=== PATIENT | male | born 1940 | race Caucasian/White ===

== ENCOUNTER 2018-11-08 20:23 | Inpatient (IN) | payer MEDICARE ==
[~2018-11-08] VITALS: Ht 177.8 cm; Wt 108.8 kg
[2018-11-08] MEDS: IPRATROPIUM 0.5MG/ALBUTEROL 2.5MG INH SOL UD 3ML (DUONEB)(J7620) NEB SCH (20:00)
[2018-11-08] MEDS: HumaLOG INSULIN (NovoLOG) PER UNIT SC SCH (21:00)
[2018-11-08 21:09] LABS: HEMATOCRIT 37.2 % (42.0-52.0); HEMOGLOBIN 12.5 g/dl (13.5-17.5); MEAN CORPUSCULAR HEMOGLOBIN 30.2 pg (27.0-33.0); MEAN CORPUSCULAR HGB CONC 33.6 g/dl (32.0-36.5); MEAN CORPUSCULAR VOLUME 89.9 fl (80.0-96.0); RED BLOOD COUNT 4.14 10^6/uL (4.30-6.10); WHITE BLOOD COUNT 20.3 10^3/uL (4.0-10.0)
[2018-11-08 21:14] LABS: CREATININE FOR GFR 1.33 MG/DL (0.70-1.30); GLOMERULAR FILTRATION RATE 55.2 (>42); POTASSIUM SERUM 3.6 MEQ/L (3.5-5.1)
[2018-11-08] MEDS ORDERED: IPRATROPIUM 0.5MG/ALBUTEROL 2.5MG INH SOL UD 3ML (DUONEB)(J7620) NEB ONE (21:15)
[2018-11-08] MEDS ORDERED: FUROSEMIDE 100 MG/10 ML VIAL (J1940) IV ONE (21:15)
[2018-11-08 21:29] LABS: ATYPICAL LYMPH 9 % (0-5); LYMPHOCYTES 4 % (16-52); MONOCYTES 8 % (0-8); NEUTROPHILS 79 % (35-75)
[2018-11-08 21:30] LABS: PLATELET ESTIMATE INCREASED (NORMAL)
[2018-11-08] MEDS ORDERED: dexameTHASONE 20 MG/5 ML VIAL (J1100) IV ONE (21:30)
[2018-11-08 21:31] LABS: ANISOCYTOSIS 1+; PLATELET CLUMPS MODERATE AMT; TOXIC GRANULATION 1+; TOXIC VACUOLATION 1+
[2018-11-08] MEDS ORDERED: AZITHROMYCIN INJ 500 MG, VIAL MATE ADAPTER 1 EACH in D5W 250 ML IV ONE (21:45)
[2018-11-08] MEDS ORDERED: cefTRIAXone SOD 2 GM in D5W MINI-BAG PLUS 50 ML IV ONE (21:45)
[2018-11-08] MEDS ORDERED: BISACODYL 10 MG SUPP PR PRN (22:00)
[2018-11-08] MEDS ORDERED: NS 1,000 ML IV SCH (22:00)
[2018-11-08] MEDS ORDERED: IPRATROPIUM 0.5MG/ALBUTEROL 2.5MG INH SOL UD 3ML (DUONEB)(J7620) NEB PRN (22:00)
[2018-11-08] MEDS ORDERED: ACETAMINOPHEN TAB 650MG DOSE (2X325MG) PO PRN (22:00)
[2018-11-08] MEDS ORDERED: ONDANSETRON 4MG/2ML VIAL (J2405) IV PRN (22:00)
[2018-11-08 22:07] LABS: ABG BASE EXCESS 1.4 (-2.0-2.0); ABG HCO3 24.2 MEQ/L (22.0-26.0); ABG O2 SATURATION 95.9 % (95.0-99.0); ABG PARTIAL PRESSURE CO2 32.9 mmHg (35.0-45.0); ABG PARTIAL PRESSURE O2 80.1 mmHg (75.0-100.0); ABG STANDARD HCO3 25.7 MEQ/L (22.0-26.0); ABG TOTAL CO2 25.2 MEQ/L (23.0-31.0); ABG pH (ARTERIAL) 7.485 UNITS (7.350-7.450)
[2018-11-08 22:11] LABS: INFLUENZA A AMPLIFICATION NEGATIVE (NEGATIVE); INFLUENZA B AMPLIFICATION NEGATIVE (NEGATIVE)
[2018-11-08 22:33] LABS: MB/CK RELATIVE INDEX 1.66 (< OR =4); TROPONIN I 0.04 NG/ML (< 0.10)
[2018-11-08] MEDS ORDERED: OMEP20CA3 PO (23:05)
[2018-11-08] MEDS ORDERED: ZYRT10CA5 PO (23:05)
[2018-11-08] MEDS ORDERED: FLUTISP (23:05)
[2018-11-08] MEDS ORDERED: BUDE0.5S6 INH (23:05)
[2018-11-08] MEDS ORDERED: PRED10TA2 PO (23:05)
[2018-11-08] MEDS ORDERED: DIGO0.12 PO (23:05)
[2018-11-08] MEDS ORDERED: VENTAER INH (23:05)
[2018-11-08] MEDS ORDERED: GLIP2.5T6 PO (23:05)
[2018-11-08] MEDS ORDERED: BUME0.5T PO ×2 (23:05)
[2018-11-08] MEDS ORDERED: CART120C PO (23:05)
[2018-11-08] MEDS ORDERED: SING10TA32 PO (23:05)
[2018-11-08] MEDS ORDERED: MUCI600T31 PO (23:05)
[2018-11-08] MEDS ORDERED: AZEL0.1S (23:05)
[2018-11-08] MEDS ORDERED: ANOR1AER INH (23:05)
[2018-11-08] MEDS ORDERED: ALBU83IN INH (23:05)
[2018-11-08] MEDS ORDERED: METF500T13 PO (23:05)
[2018-11-08] MEDS ORDERED: ATOR1TAB21 PO (23:05)
[2018-11-08] MEDS ORDERED: GLUCOSE 4 GM CHEW TABLET PO PRN (23:15)
[2018-11-08] MEDS ORDERED: DEXTROSE 50% 50 ML SYRINGE IV PRN (23:15)
[2018-11-08] MEDS ORDERED: GLUCAGON FOR INJ 1 MG VIAL (J1610) SC PRN (23:15)
--- NOTE | 2018-11-08 23:27 | HPEPDOC ---
[facility] Medical History & Physical Date of Admission Nov 08, 2018 Attending Physician: CHAPINCITO PAZ MD History and Physical CHIEF COMPLAINT: [Shortness of breath ] HISTORY OF PRESENT ILLNESS: [77-year-old gentleman was in a few past medical history of BROOKLYNN requiring oxygen at night, asthma/COPD currently on prednisone, chronic lotion or any edema, GERD, hyperlipidemia, diabetes,hypertension who resides in [place] visiting son and Johny came in complaining acute on chronic shortness of breath. Patient states that he has shortness of breath for past 3 years but is ongoing on and off. He has chronic lower extremity swelling for past 3 months and is on hydrochlorothiazide and recently started on Bumex prior to coming to visit his son in [place]. Patient states that he has been unable to lie flat for a while which is unchanged. He is chronically on oxygen therapy at nighttime for his BROOKLYNN. He came to the hospital due to shortness of breath thats worse than his chronic shortness of breath. In the emergency room patient was found to have fever of 101. Chest x-ray was obtained with possible right lower lobe infiltrate. He also had leukocytosis. Patient is being admitted for further evaluation and treatment for pneumonia. Review system: 12 point review systems negative other than those described in HPI Past medical history: BROOKLYNN requiring oxygen at night, chronic lower surgery edema, GERD, hyperlipidemia, diabetes, hypertension, asthma, COPD Surgical history: Prostate surgery, bladder surgery, hernia repair Social history: Does not smoke quit 45 years ago, denies of alcohol or drug abuse Family medical history: Noncontributory ALLERGIES: Please see below. HOME MEDICATIONS: Please see below. PHYSICAL EXAMINATION: VITAL SIGNS: Please see below GENERAL APPEARANCE: Resting comfortably HEENT: Normocephalic, PERRLA, Mucous moist, CARDIOVASCULAR: S1,S2, pulse present, sinus tachycardic LUNGS: Equal decreased air entry b/l, no wheezes but fine crackle at the right base ABDOMEN: Soft, BS present, no tenderness, no guarding GENITOURINARY: No Perez EXTREMITIES: B/L +2 pitting edema to the knee bilaterally right greater than the left edema, capillary refill present SKIN: Warm, fever improved in the ER NEUROLOGICAL: Cranial nerves grossly intact PSYCHIATRIC: Normal mood and affect for current situation, son at the bedside EKG: Heart rate of 119, sinus tachycardia, motion artifact LABORATORY DATA: See below. IMAGING: [Chest x-ray: Possible right lower lobe infiltrate, no cardiomegaly and no obvious encephalization but please follow up with official reading by radiology in a.m.] MICROBIOLOGY: Please see below. Assessment and plan: 77-year-old gentleman was in a few past medical history of BROOKLYNN requiring oxygen at night, asthma/COPD currently on prednisone, chronic lotion or any edema, GERD, hyperlipidemia, diabetes,hypertension who resides in [place] visiting son and [place] came in complaining acute on chronic shortness of breath and admitted for pneumonia. Right lower lobe pneumonia suspected, cough, fever and leukocytosis RT, oxygen when necessary Azithromycin, and Rocephin Judicious IV fluid and Tylenol for fever Blood culture pending Please follow up with official reading by radiology Influenza A and B negative VQ scan if no improvement Continue home steroid, clinically monitor and utilize IV if requiring stress dosing Sinus tachycardia Treat above Resume home diltiazem and digoxin BROOKLYNN Oxygen at nighttime Chronic lower extremity swelling, possible CHF but surprisingly BNP within normal and chest x-ray without obvious signs for decompensation Telemetry, serial cardiac enzyme Echocardiogram for further evaluation I&O monitoring, daily weight Delmar stocking Hold diuretics for now to rehydrate and treat pneumonia Utilize IV Lasix if does not respond to treatment above Possible Acute renal failure, no old creatinine for comparison IV fluid Hold renal toxic medication including bumetanide and hydrochlorothiazide Judicious monitoring, renal ultrasound Nephrology consult as needed Diabetes Fingersticks, sliding scale, hold by mouth medications, utilize long-acting insulin as needed Hyperlipidemia, resume statin Hypertension, resume diltiazem Arrhythmia, resume diltiazem and digoxin Asthma, COPD, resume RT home regimen including prednisone daily GERD, resume omeprazole DVT prophylaxis with heparin subcutaneous Requests full code Vital Signs Vital Signs Date Time Temp Pulse Resp B/P (MAP) Pulse Ox O2 Delivery O2 Flow Rate FiO2 11/08/18 23:02 100.0 11/08/18 22:30 120 24 189/79 (115) 93 Nasal Cannula 2.0 Laboratory Data Labs 24H Laboratory Tests 2 11/08/18 20:47: White Blood Count 20.3H, Red Blood Count 4.14L, Hemoglobin 12.5L, Hematocrit 37.2L, Mean Corpuscular Volume 89.9, Mean Corpuscular Hemoglobin 30.2, Mean Pippa uscular Hemoglobin Concent 33.6, Red Cell Distribution Width 14.6H, Platelet Count , Monocytes # (Auto) , Nucleated Red Blood Cells % (auto) 0.0, Neutrophils 79H, Lymphocytes (Manual) 4L, Monocytes (Manual) 8, Atypical Lymphocytes 9H, Toxic Granulation 1+, Toxic Vacuolation 1+, Platelet Estimate INCREASED, Clumped Platelets MODERATE AMT, Anisocytosis 1+, Anion Gap 11, Glomerular Filtration Rate 55.2, Lactic Acid Level 1.5, Blood Urea Nitrogen 27H, Creatinine 1.33H, Sodium Level 140, Potassium Level 3.6, Chloride Level 105, Carbon Dioxide Level 24, Calcium Level 9.0, Total Creatine Kinase 362H, Creatine Kinase MB 6.0H, Creatine Kinase MB Relative Index 1.66, Troponin I 0.04, JM-Tvd-N-Type Merline riuretic Peptide 361 11/08/18 21:29: Influenza Type A (RT-PCR) NEGATIVE, Influenza Type B (RT-PCR) NEGATIVE 11/08/18 22:02: Blood Gas Bicarbonate Standard 25.7, Arterial Blood pH 7.485H, Arterial Blood Partial Pressure CO2 32.9L, Arterial Blood Partial Pressure O2 80.1, Arterial Blood Total CO2 25.2, Arterial Blood HCO3 24.2, Arterial Blood Base Excess 1.4, Arterial Blood Oxygen Saturation 95.9 CBC/BMP Laboratory Tests 11/08/18 20:47 Red Blood Count 4.14 L, Mean Corpuscular Volume 89.9, Mean Corpuscular Hemoglobin 30.2, Mean Corpuscular Hemoglobin Concent 33.6, Red Cell Distribution Width 14.6 H, Monocytes # (Auto) , Calcium Level 9.0, Total Creatine Kinase 362 H Microbiology Microbiology 11/08/18 Blood Culture, Received Pending Home Medications Scheduled (Digoxin) 125 Mcg Tab, 125 MCG PO DAILY (Anoro Ellipta 62.5-25 Mcg/INH) 1 Aer Aer, 1 AER INH DAILY (Azelastine Hydrochloride) 0.1 % Spr, 2 SPRAYS NA DAILY Atorvastatin Calcium (Atorvastatin Calcium) 20 Mg Tab, 20 MG PO DAILY Budesonide (Budesonide) 0.5 Mg/2 Ml Neb, 0.5 MG INH BID Bumetanide (Bumetanide) 0.5 Mg Tab, 1 MG PO DAILY Bumetanide (Bumetanide) 0.5 Mg Tab, 0.5 MG PO QHS Cetirizine HCl (Zyrtec Allergy) 10 Mg Tab, 10 MG PO DAILY Diltiazem HCl (Cartia Xt) 120 Mg Cap, 120 MG PO BID Fluticasone Propionate (Fluticasone Propionate) 50 Mcg/Act Spr, 1 SPRAY NA BID Glipizide (Glipizide ER) 2.5 Mg Tab, 2.5 MG PO BID Guaifenesin (Mucinex) 600 Mg Tab, 600 MG PO BID Metformin Hydrochloride (Metformin HCl) 500 Mg Tab, 500 MG PO BID Montelukast Sodium (Singulair) 10 Mg Tab, 10 MG PO DAILY Omeprazole (Omeprazole) 20 Mg Cap, 20 MG PO DAILY Prednisone (Prednisone) 10 Mg Tab, 10 MG PO DAILY Scheduled PRN Albuterol Sulfate (Ventolin Hfa) 108 Mcg/Act Aer, 2 PUFFS INH Q4H PRN for SHORTNESS OF BREATH Albuterol Sulfate (Albuterol Sulfate) 2.5 Mg/3 Ml Nebu, 2.5 MG INH Q4H PRN for SHORTNESS OF BREATH Allergies Coded Allergies: No Known Allergies (Unverified , 11/08/18) GUY KLEIN MD Nov 08, 2018 23:27
[2018-11-09] VITALS (8 sets, daily range): BP systolic 130–165; BP diastolic 70–90
--- NOTE | 2018-11-09 00:44 | REPVR ---
EXAM: US Retroperitoneal Limited, Kidneys EXAM DATE/TIME: 11/08/2018 11:46 PM CLINICAL HISTORY: 77 years old, male; Condition or disease; Other: Arf TECHNIQUE: Real-time ultrasound of the retroperitoneum with image documentation. Examination was focused on the kidneys. COMPARISON: No relevant prior studies available. FINDINGS: Right kidney: 12.1 cm in length. No stones. No hydronephrosis. Left kidney: 12.2 cm in length. No stones. No hydronephrosis. Bladder: No definite urinary bladder wall thickening. IMPRESSION: No acute sonographic findings. Electronically signed by: Hieu Bertrand On 11/09/2018 00:43:22 AM
[2018-11-09] MEDS: IPRATROPIUM 0.5MG/ALBUTEROL 2.5MG INH SOL UD 3ML (DUONEB)(J7620) NEB SCH ×4 (02:00→20:37)
[2018-11-09 05:55] LABS: HEMATOCRIT 37.1 % (42.0-52.0); HEMOGLOBIN 12.4 g/dl (13.5-17.5); MEAN CORPUSCULAR HEMOGLOBIN 30.2 pg (27.0-33.0); MEAN CORPUSCULAR HGB CONC 33.4 g/dl (32.0-36.5); MEAN CORPUSCULAR VOLUME 90.3 fl (80.0-96.0); PLATELET COUNT, AUTOMATED 321 10^3/uL (150-450); RED BLOOD COUNT 4.11 10^6/uL (4.30-6.10); WHITE BLOOD COUNT 21.9 10^3/uL (4.0-10.0)
[2018-11-09] MEDS: HEPARIN SOD (PORCINE) 5000 UNITS/ML VIAL SC SCH ×3 (06:12→21:48)
[2018-11-09 06:20] LABS: CALCIUM LEVEL 8.8 MG/DL (8.8-10.2); CREATININE FOR GFR 1.24 MG/DL (0.70-1.30); GLOMERULAR FILTRATION RATE 59.9 (>42); MB/CK RELATIVE INDEX 1.8 (< OR =4); POTASSIUM SERUM 3.8 MEQ/L (3.5-5.1); TROPONIN I 0.03 NG/ML (< 0.10)
[2018-11-09] MEDS: BUDESONIDE 0.5 MG/2 ML INHALATION SUSPENSION INH SCH ×2 (07:26→20:37)
--- NOTE | 2018-11-09 07:43 | REP ---
Clinical: Shortness of breath. Technique: PA and lateral. Comparison: None. Findings: Mediastinum and cardiac silhouette are normal. Trace bibasilar atelectasis. No effusion. No pneumothorax. Skeletal structures intact. Impression: Trace basilar atelectasis. Electronically Signed by Juan Daniel Burnette MD 11/09/2018 07:34 A
[2018-11-09] MEDS: HumaLOG INSULIN (NovoLOG) PER UNIT SC SCH ×4 (07:57→20:51)
[2018-11-09] MEDS: ATORVASTATIN 20 MG TAB PO SCH (07:59)
[2018-11-09] MEDS: DIGOXIN 0.125 MG TAB PO SCH (07:59)
[2018-11-09] MEDS: OMEPRAZOLE 20 MG CAP PO SCH (08:00)
[2018-11-09] MEDS: FLUTICASONE PROP 0.05% NASAL SPRAY 16 GM (FLONASE) SCH ×2 (08:00→20:52)
[2018-11-09] MEDS: MONTELUKAST 10 MG TAB PO SCH (08:00)
[2018-11-09] MEDS: CETIRIZINE (ZyrTEC) 10 MG TAB PO SCH (08:00)
[2018-11-09] MEDS ORDERED: predniSONE 10 MG TAB PO SCH (09:00)
--- NOTE | 2018-11-09 09:53 | REP ---
Clinical: COPD. Technique: Axial noncontrast images from the thoracic inlet to the upper abdomen with coronal and sagittal re-formations. Comparison: None. Findings: The lung hoang are well-aerated and demonstrate chronic interstitial changes and bronchiectasis primarily involving the bilateral lung bases. Subtle superimposed small areas of interstitial and airspace disease are identified at the bilateral lower lobes (left greater than right) suggest bronchitis and/or early pneumonia. No discrete focal consolidation. No effusion. No pneumothorax. Reactive mediastinal lymph nodes are identified measuring up to approximately 14 mm short axis diameter. Atherosclerotic changes to the thoracic aorta and coronary arteries without aortic aneurysm, cardiomegaly or pericardial effusion. Surrounding musculoskeletal structures are intact. Limited upper abdomen demonstrates normal bilateral adrenal glands. Impression: Findings suggest bronchitis with trace basilar atelectasis and/or early pneumonia (left greater than right). Electronically Signed by Juan Daniel Burnette MD 11/09/2018 09:45 A
[2018-11-09] MEDS ORDERED: SLF 3 ML SYR IV PRN (10:45)
--- NOTE | 2018-11-09 11:20 | REP ---
VENTILATION-PERFUSION LUNG SCAN: HISTORY: Dyspnea. Shortness of breath on exertion. Comparison is made with today's chest CT. TECHNIQUE: 1.0 mCi of technetium-99m DTPA aerosol is utilized for the ventilation study and is followed by a 5.5 mCi technetium 99m MAA dose given intravenously for the perfusion exam. Eight planar images are acquired for each portion of the study. SCINTIGRAPHIC FINDINGS: There is central bronchial deposition of inspired DTPA aerosol tracer consistent with COPD. There is a small matched ventilation-perfusion defect in the right mid lung field. No other perfusion defect is seen. IMPRESSION: Low probability scan for pulmonary embolism. Electronically Signed by Feliz Us MD 11/09/2018 12:30 P
[2018-11-09] MEDS: methylPREDNISolone INJ 40 MG/1 ML VIAL (J2920) IV SCH ×2 (11:56→23:05)
[2018-11-09] MEDS: DOXYCYCLINE HYCLATE 100 MG in D5W MINI-BAG PLUS 100 ML IV SCH ×2 (11:56→21:48)
[2018-11-09] MEDS: BUMETANIDE 1 MG TAB PO SCH (11:56)
--- NOTE | 2018-11-09 14:04 | IPN ---
DATE: 11/09/2018 Rogelio was seen in the progressive care unit. He is from [place]. He was visit the area and was admitted with exacerbation of chronic obstructive pulmonary disease (COPD). He has a past history of COPD with frequent recent hospitalizations on chronic steroid therapy, obstructive sleep apnea (BROOKLYNN) requiring nocturnal oxygen, type 2 diabetes, hypertension, and hyperlipidemia. He has had several hospitalizations in 2018 for exacerbation of COPD. He presented with several days of URI and was having increasing lower extremity edema. He had fever of 101 on admission. Chest x-ray by radiology report is unremarkable, just trace atelectasis; admission history and physical suggested initial read was right lower lobe infiltrate, but that has not been confirmed by radiology. The patient feels better since admission. He feels that his "chest congestion is breaking up" and he is feeling much less dyspneic. PHYSICAL EXAMINATION: 152/76, pulse 94, respiratory rate 18, 96% oxygen saturation on 5 liters. General appearance: Cushingoid appearance, resting comfortably. No jugular venous distention (JVD). Lungs expiratory wheezes both bases. Heart regular rhythm. No murmur. Abdomen soft, nontender, no masses. There is 1+ peripheral edema. LABS: White count is 21.9, hemoglobin 12.4, platelets 320. Sodium 137, potassium 3.8, BUN 26, creatinine 1.2, glucose 340. Troponins are flat. BNP is only 360. IMPRESSION: 1. Exacerbation of COPD secondary to presumed bronchitis. Continue PCU monitoring. Will augment his oral prednisone with some intravenous Solu-Medrol for a few days. Continue nebulized bronchodilator. He is on Rocephin 2 grams daily and azithromycin; I have stopped azithromycin substituting doxycycline 100 mg IV twice a day, which is less likely to cause arrhythmia than the azithromycin. CT scan of the chest has been ordered to see if there might be an infiltrate on the CT that is not showing up on the chest x-ray. If the CT of the chest does not show an infiltrate, I could switch him to a by mouth antibiotic. 2. Question of atrial fibrillation. He does not give any history of atrial fibrillation, but he is on digoxin and diltiazem. We do not have access to his office records. He has sinus rhythm on telemetry. 3. Suspected cor pulmonale. The patient is currently receiving both IV fluids and diuretics. I will stop the IV fluids. Will continue diuresis. He looks like he has cor pulmonale, is unlikely he has left sided congestive heart failure (CHF). 4. Type 2 diabetes. Continue sliding scale insulin. He takes glipizide ER 2.5 mg twice a day, metformin 500 mg twice a day at home. 5. Hyperlipidemia. Continue atorvastatin 20 mg daily. 6. GERD. Continue his proton pump inhibitor (PPI) therapy.
[2018-11-09 14:28] LABS: MB/CK RELATIVE INDEX 2.15 (< OR =4); TROPONIN I 0.02 NG/ML (< 0.10)
[2018-11-09] MEDS: SLF 3 ML SYR IV SCH ×2 (14:36→21:48)
--- NOTE | 2018-11-09 14:56 | ECGEPIP ---
Stationary ECG Study [facility] - ED Test Date: 2018-11-08 Pat Name: AURORA ROSAS Department: Room: [place] [address] Gender: M Gis Professor: melina : 1940 Requested By: LOTUS PLUMMER Order Number: [id number] Reading MD: Leia Reese Measurements Intervals [place] Rate: 119 P: 64 OK: 147 QRS: -40 QRSD: 96 T: 88 QT: 297 QTc: 419 Interpretive Statements SINUS TACHYCARDIA MARKED LEFT AXIS DEVIATION NONSPECIFIC ST & T-WAVE ABNORMALITY PRWP NO PRIOR FOR COMPARISON Electronically Signed On 11-09-2018 14:56:06 EST by Leia Reese
[2018-11-09] MEDS: cefTRIAXone SOD 2 GM in D5W 50 ML IV SCH (20:50)
[2018-11-09] MEDS ORDERED: AZITHROMYCIN INJ 500 MG, VIAL MATE ADAPTER 1 EACH in D5W 250 ML IV SCH (22:00)
[2018-11-10] MEDS: IPRATROPIUM 0.5MG/ALBUTEROL 2.5MG INH SOL UD 3ML (DUONEB)(J7620) NEB SCH ×4 (01:34→21:12)
[2018-11-10 04:00] VITALS: BP 148/78
[2018-11-10 05:17] LABS: HEMATOCRIT 33.7 % (42.0-52.0); HEMOGLOBIN 11.2 g/dl (13.5-17.5); MEAN CORPUSCULAR HEMOGLOBIN 29.8 pg (27.0-33.0); MEAN CORPUSCULAR HGB CONC 33.2 g/dl (32.0-36.5); MEAN CORPUSCULAR VOLUME 89.6 fl (80.0-96.0); PLATELET COUNT, AUTOMATED 307 10^3/uL (150-450); RED BLOOD COUNT 3.76 10^6/uL (4.30-6.10); WHITE BLOOD COUNT 18.4 10^3/uL (4.0-10.0)
[2018-11-10 05:40] LABS: BLOOD UREA NITROGEN 31 MG/DL (7-18); CALCIUM LEVEL 8.4 MG/DL (8.8-10.2); CARBON DIOXIDE LEVEL 23 MEQ/L (21-32); CHLORIDE LEVEL 103 MEQ/L (98-107); CREATININE FOR GFR 1.22 MG/DL (0.70-1.30); GLOMERULAR FILTRATION RATE > 60.0 (>42); GLUCOSE, FASTING 454 MG/DL (70-100); POTASSIUM SERUM 3.3 MEQ/L (3.5-5.1); SODIUM LEVEL 135 MEQ/L (136-145)
[2018-11-10] MEDS: SLF 3 ML SYR IV SCH ×3 (06:00→22:00)
[2018-11-10] MEDS: HEPARIN SOD (PORCINE) 5000 UNITS/ML VIAL SC SCH ×3 (06:26→21:13)
[2018-11-10] MEDS: HumaLOG INSULIN (NovoLOG) PER UNIT SC SCH ×4 (06:27→21:00)
[2018-11-10] MEDS: BUDESONIDE 0.5 MG/2 ML INHALATION SUSPENSION INH SCH ×2 (07:50→21:13)
[2018-11-10 08:00] VITALS: BP 140/63
--- NOTE | 2018-11-10 09:45 | ECHO ---
DATE OF PROCEDURE: 11/09/2018 DATE OF : 1940 AGE: 77 REFERRING PROVIDER: Dr. Mary Sullivan PATIENT LOCATION: Room 3213 REASON FOR THE ECHOCARDIOGRAM: Shortness of breath. 2-D MEASUREMENTS: IVS: 1.2 cm LV: 5.5 cm LVPW: 1.2 cm LA: 3.9 cm Aorta: 3.3 cm IVC: 2.5 cm DOPPLER MEASUREMENTS: Peak velocity across the aortic valve: 1.6 m/s Peak velocity across the LVOT: 1.3 m/s Mitral E: 1.2 2-D COMMENTS: 1. Normal left ventricular size, wall thickness and systolic function. The estimated global left ventricular systolic ejection fraction is 60-65%. 2. Normal left atrium. Normal right atrium and right ventricle. 3. The atrial septum appeared to be normal without evidence of defect or shunt. 4. Normal aortic root. 5. Trace pericardial effusion noted. No evidence cardiac tamponade. 6. Mildly calcified aortic valve with normal leaflet excursion. Mildly calcified mitral annulus with normal anterior mitral valve leaflet motion. Normal tricuspid valve. The pulmonic valve and proximal pulmonary artery branches were not well visualized. 7. The inferior vena cava was mildly dilated, central venous pressure mildly elevated. DOPPLER: It detects trace tricuspid regurgitation. The pulmonary artery systolic pressure was normal. There are features consistent with left ventricular diastolic dysfunction. IMPRESSION: 1. Normal global left ventricular systolic function. There are features of left ventricular diastolic dysfunction manifested by abnormal relaxation. 2. Aortic valve sclerosis without stenosis or aortic regurgitation. 3. Isolated mitral annulus calcification. No significant mitral regurgitation detected. 4. Trace tricuspid regurgitation with a normal pulmonary artery systolic pressure. 5. Trace pericardial effusion. 6. The inferior vena cava was mildly enlarged, central venous pressure might be elevated. MTDD
[2018-11-10] MEDS: BUMETANIDE 1 MG TAB PO SCH (10:22)
[2018-11-10] MEDS: methylPREDNISolone INJ 40 MG/1 ML VIAL (J2920) IV SCH ×2 (10:23→23:56)
[2018-11-10] MEDS: DIGOXIN 0.125 MG TAB PO SCH (10:24)
[2018-11-10] MEDS: OMEPRAZOLE 20 MG CAP PO SCH (10:24)
[2018-11-10] MEDS: CETIRIZINE (ZyrTEC) 10 MG TAB PO SCH (10:24)
[2018-11-10] MEDS: DOXYCYCLINE HYCLATE 100 MG in D5W MINI-BAG PLUS 100 ML IV SCH ×2 (10:25→22:30)
[2018-11-10] MEDS: FLUTICASONE PROP 0.05% NASAL SPRAY 16 GM (FLONASE) SCH ×2 (10:25→21:00)
[2018-11-10] MEDS: MONTELUKAST 10 MG TAB PO SCH (10:25)
[2018-11-10] MEDS: ATORVASTATIN 20 MG TAB PO SCH (10:25)
[2018-11-10] MEDS: POTASSIUM CHLORIDE 10 MEQ SR TABLET PO SCH ×2 (10:46→21:05)
[2018-11-10] MEDS: metFORMIN (GLUCOPHAGE) 500 MG TAB PO SCH ×2 (10:47→18:05)
[2018-11-10] MEDS: glipiZIDE *XL* 2.5MG TABLET PO SCH ×2 (10:47→21:00)
[2018-11-10 12:00] VITALS: BP 167/79
--- NOTE | 2018-11-10 15:44 | IPN ---
DATE: 11/10/2018 Hunter feels a little better. He thinks he might be breaking up some of his chest congestion, problems with thicker mucus and I am adding a mucolytic today. His blood sugar is elevated. Restarting some of his diabetic medications. I am reducing his steroid dose. He had an echocardiogram performed that showed a normal ejection 60-65%, borderline elevated left atrium 39 mm. No significant valvular disease. Trace pericardial effusion. Mild left ventricular diastolic dysfunction noted. Normal pulmonary artery pressure. He had a normal brain natriuretic peptide (BNP) on admission, which should rule out congestive heart failure. PHYSICAL EXAMINATION: 146/73, pulse 73, 95% oxygen saturation on room air. General appearance: Resting comfortably. Visiting the family. Frequent cough. Audible wheezing. No jugular venous distention (JVD) is present. Lungs have wheezes in all hoang. Heart: Regular rate and rhythm. Abdomen: Soft, obese, nontender. No peripheral edema. LABS: White count 18.4, on steroids, hemoglobin 11.2, platelets 307. Sodium 135, potassium 3.3, BUN 31, creatinine 1.2, glucose 450. Troponins are flat. BNP is only 360. IMPRESSION: 1. Exacerbation of chronic obstructive pulmonary disease (COPD) secondary to presumed bronchitis. He is on Rocephin and doxycycline. Apparently there was a V/Q scan of the chest ordered on admission. This was low probability for pulmonary embolism (PE). I have reduced the dose of his intravenous steroids in the face of his hyperglycemia. It should be noted that he was on oral prednisone 10 mg daily as an outpatient; should not be weaned off from steroids completely until seen by his yarn hauler in [place]. 2. Question of atrial fibrillation. No history of this. He is on digoxin and diltiazem. He is in sinus rhythm on telemetry. 3. Type 2 diabetes. Restart glipizide and metformin. Continue sliding scale insulin.. 4. Hyperlipidemia. Continue atorvastatin. 5. History of questionable diastolic congestive heart failure. His BNP was normal on admission. He has mild diastolic dysfunction on echocardiogram but not to a striking degree. He uses Bumex as an outpatient, which will continue. Supplemental potassium has been given.
[2018-11-10 16:40] VITALS: BP 150/72
[2018-11-10 18:00] VITALS: BP 169/79
[2018-11-10] MEDS: cefTRIAXone SOD 2 GM in D5W 50 ML IV SCH (21:00)
[2018-11-10 22:00] VITALS: BP 152/69
[2018-11-11 02:00] VITALS: BP 138/72
[2018-11-11] MEDS: IPRATROPIUM 0.5MG/ALBUTEROL 2.5MG INH SOL UD 3ML (DUONEB)(J7620) NEB SCH ×4 (02:08→19:29)
[2018-11-11 06:00] VITALS: BP 144/74
[2018-11-11] MEDS: HEPARIN SOD (PORCINE) 5000 UNITS/ML VIAL SC SCH ×3 (06:00→22:56)
[2018-11-11] MEDS: SLF 3 ML SYR IV SCH ×3 (06:00→22:56)
[2018-11-11 06:13] LABS: HEMATOCRIT 33.4 % (42.0-52.0); HEMOGLOBIN 11.4 g/dl (13.5-17.5); MEAN CORPUSCULAR HEMOGLOBIN 30.1 pg (27.0-33.0); MEAN CORPUSCULAR HGB CONC 34.1 g/dl (32.0-36.5); MEAN CORPUSCULAR VOLUME 88.1 fl (80.0-96.0); PLATELET COUNT, AUTOMATED 312 10^3/uL (150-450); RED BLOOD COUNT 3.79 10^6/uL (4.30-6.10); WHITE BLOOD COUNT 17.3 10^3/uL (4.0-10.0)
[2018-11-11 06:33] LABS: BLOOD UREA NITROGEN 31 MG/DL (7-18); CALCIUM LEVEL 8.6 MG/DL (8.8-10.2); CARBON DIOXIDE LEVEL 21 MEQ/L (21-32); CHLORIDE LEVEL 102 MEQ/L (98-107); CREATININE FOR GFR 1.16 MG/DL (0.70-1.30); GLOMERULAR FILTRATION RATE > 60.0 (>42); GLUCOSE, FASTING 383 MG/DL (70-100); POTASSIUM SERUM 4.1 MEQ/L (3.5-5.1); SODIUM LEVEL 135 MEQ/L (136-145)
[2018-11-11] MEDS: BUDESONIDE 0.5 MG/2 ML INHALATION SUSPENSION INH SCH ×2 (07:31→19:29)
[2018-11-11] MEDS: POTASSIUM CHLORIDE 10 MEQ SR TABLET PO SCH ×2 (08:16→20:54)
[2018-11-11] MEDS: OMEPRAZOLE 20 MG CAP PO SCH (08:16)
[2018-11-11] MEDS: glipiZIDE *XL* 2.5MG TABLET PO SCH ×2 (08:18→20:55)
[2018-11-11] MEDS: DIGOXIN 0.125 MG TAB PO SCH (08:18)
[2018-11-11] MEDS: metFORMIN (GLUCOPHAGE) 500 MG TAB PO SCH ×2 (08:18→18:15)
[2018-11-11] MEDS: ATORVASTATIN 20 MG TAB PO SCH (08:18)
[2018-11-11] MEDS: FLUTICASONE PROP 0.05% NASAL SPRAY 16 GM (FLONASE) SCH ×2 (08:19→20:56)
[2018-11-11] MEDS: MONTELUKAST 10 MG TAB PO SCH (08:19)
[2018-11-11] MEDS: CETIRIZINE (ZyrTEC) 10 MG TAB PO SCH (08:19)
[2018-11-11] MEDS: HumaLOG INSULIN (NovoLOG) PER UNIT SC SCH ×4 (08:23→20:55)
[2018-11-11 10:00] VITALS: BP 165/75
[2018-11-11] MEDS: methylPREDNISolone INJ 40 MG/1 ML VIAL (J2920) IV SCH ×2 (10:48→22:55)
[2018-11-11] MEDS: DOXYCYCLINE HYCLATE 100 MG in D5W MINI-BAG PLUS 100 ML IV SCH ×2 (10:48→23:23)
[2018-11-11] MEDS: BUMETANIDE 1 MG TAB PO SCH (10:49)
[2018-11-11 14:00] VITALS: BP 170/73
[2018-11-11 14:14] LABS: BODY FLUID CULTURE Not Indicated (.); LEGIONELLA ANTIGEN URINE Negative (Negative); ORGANISM ID Not indicated. (.); SPECIMEN SOURCE Urine (.); URINE STREP PNEUMONIAE ANTIGEN Negative (Negative)
--- NOTE | 2018-11-11 14:54 | IPN ---
DATE: 11/11/2018 Rogelio is looking better. He is moving air better. He still has a congested cough, not as productive as he would like. His respiratory panel finding came back. It showed rhinovirus/enterovirus. His clinical condition suggests a secondary bacterial infection. His rapid legionella screen and Streptococcus pneumoniae screen returned negative, 60 hours after being ordered. PHYSICAL EXAMINATION: Blood pressure 165/75, pulse 95, respiratory rate 19, 95% oxygen saturation, afebrile. He is moving better air. He is more comfortable in his room. No jugular venous distention (JVD). LUNGS: Expiratory wheezes and rhonchi but good air movement. HEART: Regular rate and rhythm. ABDOMEN: Soft, nontender. Trace peripheral edema. LABORATORY DATA: Blood sugar is still elevated. Electrolytes are unremarkable. White count 17,000 on steroids. IMPRESSION: 1. Exacerbation of chronic obstructive pulmonary disease (COPD), secondary to a probable viral infection. His cough is productive of purulent sputum. I am continuing the doxycycline and Rocephin with intravenous steroids. We plan to transition to oral steroids at discharge, maintaining a dose of 10 mg at the end of his wean as that is the outpatient dose he is on from his sand temperer. 2. ? atrial fibrillation, in sinus rhythm on telemetry. Continue digoxin and diltiazem. 3. Type 2 diabetes. Restarted glipizide and metformin yesterday. Hopefully, his blood sugars will start coming down. We also reduced his steroid dose yesterday.
[2018-11-11 18:00] VITALS: BP 179/83
[2018-11-11] MEDS: BISACODYL 5 MG TAB PO PRN (18:15)
[2018-11-11] MEDS: cefTRIAXone SOD 2 GM in D5W 50 ML IV SCH (20:53)
[2018-11-11 22:00] VITALS: BP 140/82
[2018-11-12] VITALS (7 sets, daily range): BP systolic 138–177; BP diastolic 68–85
[2018-11-12] MEDS: IPRATROPIUM 0.5MG/ALBUTEROL 2.5MG INH SOL UD 3ML (DUONEB)(J7620) NEB SCH ×4 (01:00→19:51)
[2018-11-12] MEDS ORDERED: guaiFENesin SYRUP 200 MG/10 ML UDC PO PRN (01:45)
[2018-11-12] MEDS ORDERED: FUROSEMIDE 40 MG/4 ML VIAL (J1940) IV ONE (02:00)
[2018-11-12] MEDS: guaiFENesin SYRUP 200 MG/10 ML UDC PO PRN ×2 (02:14→06:01)
[2018-11-12] MEDS: SLF 3 ML SYR IV SCH ×3 (05:33→21:07)
[2018-11-12] MEDS: HEPARIN SOD (PORCINE) 5000 UNITS/ML VIAL SC SCH ×3 (05:33→21:06)
[2018-11-12 05:56] LABS: HEMATOCRIT 34.6 % (42.0-52.0); HEMOGLOBIN 11.9 g/dl (13.5-17.5); MEAN CORPUSCULAR HEMOGLOBIN 29.9 pg (27.0-33.0); MEAN CORPUSCULAR HGB CONC 34.4 g/dl (32.0-36.5); MEAN CORPUSCULAR VOLUME 86.9 fl (80.0-96.0); PLATELET COUNT, AUTOMATED 323 10^3/uL (150-450); RED BLOOD COUNT 3.98 10^6/uL (4.30-6.10); WHITE BLOOD COUNT 14.2 10^3/uL (4.0-10.0)
[2018-11-12 06:21] LABS: BLOOD UREA NITROGEN 31 MG/DL (7-18); CALCIUM LEVEL 8.7 MG/DL (8.8-10.2); CARBON DIOXIDE LEVEL 22 MEQ/L (21-32); CHLORIDE LEVEL 102 MEQ/L (98-107); CREATININE FOR GFR 1.21 MG/DL (0.70-1.30); GLOMERULAR FILTRATION RATE > 60.0 (>42); GLUCOSE, FASTING 342 MG/DL (70-100); POTASSIUM SERUM 4.5 MEQ/L (3.5-5.1); SODIUM LEVEL 135 MEQ/L (136-145)
[2018-11-12] MEDS: MONTELUKAST 10 MG TAB PO SCH (07:48)
[2018-11-12] MEDS: HumaLOG INSULIN (NovoLOG) PER UNIT SC SCH ×4 (07:48→21:08)
[2018-11-12] MEDS: DIGOXIN 0.125 MG TAB PO SCH (07:50)
[2018-11-12] MEDS: POTASSIUM CHLORIDE 10 MEQ SR TABLET PO SCH ×2 (07:50→21:06)
[2018-11-12] MEDS: glipiZIDE *XL* 2.5MG TABLET PO SCH ×2 (07:50→21:07)
[2018-11-12] MEDS: BUMETANIDE 1 MG TAB PO SCH (07:50)
[2018-11-12] MEDS: CETIRIZINE (ZyrTEC) 10 MG TAB PO SCH (07:51)
[2018-11-12] MEDS: ATORVASTATIN 20 MG TAB PO SCH (07:51)
[2018-11-12] MEDS: OMEPRAZOLE 20 MG CAP PO SCH (07:51)
[2018-11-12] MEDS: metFORMIN (GLUCOPHAGE) 500 MG TAB PO SCH ×2 (07:57→17:18)
[2018-11-12] MEDS: FLUTICASONE PROP 0.05% NASAL SPRAY 16 GM (FLONASE) SCH ×2 (07:57→21:08)
[2018-11-12] MEDS: BISACODYL 5 MG TAB PO PRN (08:09)
[2018-11-12] MEDS: BUDESONIDE 0.5 MG/2 ML INHALATION SUSPENSION INH SCH ×2 (08:14→19:51)
[2018-11-12] MEDS ORDERED: guaiFENesin ER 600 MG TAB PO SCH (09:00)
[2018-11-12] MEDS: methylPREDNISolone INJ 40 MG/1 ML VIAL (J2920) IV SCH ×2 (10:49→22:07)
[2018-11-12] MEDS: DOXYCYCLINE HYCLATE 100 MG in D5W MINI-BAG PLUS 100 ML IV SCH ×2 (10:49→22:07)
--- NOTE | 2018-11-12 14:01 | IPN ---
DATE: 11/12/2018 Rogelio is making slow progress. He still has a lot of sputum and cough. He grew rhinovirus and enterovirus on his respiratory panel but continued antibiotics, clinical impression is secondary bacterial infection. No fever. He is making slow progress. PHYSICAL EXAMINATION: Vital signs stable, afebrile. HEENT: Unremarkable. LUNGS: Decreased rhonchi and wheezes. Better air movement than yesterday. HEART: Regular rate and rhythm. Rate of 100. ABDOMEN: Soft, nontender. No peripheral edema. LABORATORIES: White count 14.2, hemoglobin 11, hematocrit 323. Sodium 135, potassium 4.5, BUN 31, creatinine 1.2, glucose 320. Blood sugars are in the 200 to 300 range. IMPRESSION: 1. Exacerbation of chronic obstructive pulmonary disease (COPD) secondary to viral infection with assumed secondary bacterial infection. Continue Rocephin, doxycycline, intravenous steroids, nebulized bronchodilator. As noted previously, he was on 10 mg of oral prednisone as an outpatient and should not be weaned below that dose until he sees his outpatient boot turner in [place]. 2. Atrial fibrillation. He is on digoxin and diltiazem. His rate is controlled. 3. Type 2 diabetes. Add basal insulin. He is on glipizide, metformin and sliding scale. 4. Diastolic congestive heart failure (CHF). Echocardiogram showed an ejection fraction of 60 to 65%. There is mild left ventricular diastolic dysfunction noted on echocardiogram. He is on diuretic for this and volume status seems euvolemic. Mr. Velozs progress has been slow but is apparent on examination and so I expect that he will be in the hospital for a few more days. Anticipated discharge date is perhaps 11/15 through 11/16/2018.
[2018-11-12] MEDS ORDERED: LEVEMIR (INSULIN DETEMIR) 1 UNITS/0.01ML SC SCH (21:00)
[2018-11-12] MEDS: cefTRIAXone SOD 2 GM in D5W 50 ML IV SCH (21:08)
[2018-11-13 02:00] VITALS: BP 155/74
[2018-11-13] MEDS: IPRATROPIUM 0.5MG/ALBUTEROL 2.5MG INH SOL UD 3ML (DUONEB)(J7620) NEB SCH ×2 (02:26→07:31)
[2018-11-13] MEDS: SLF 3 ML SYR IV SCH (05:07)
[2018-11-13] MEDS: HEPARIN SOD (PORCINE) 5000 UNITS/ML VIAL SC SCH (05:08)
[2018-11-13 05:57] LABS: HEMATOCRIT 33.2 % (42.0-52.0); HEMOGLOBIN 11.5 g/dl (13.5-17.5); MEAN CORPUSCULAR HEMOGLOBIN 30.2 pg (27.0-33.0); MEAN CORPUSCULAR HGB CONC 34.6 g/dl (32.0-36.5); MEAN CORPUSCULAR VOLUME 87.1 fl (80.0-96.0); PLATELET COUNT, AUTOMATED 303 10^3/uL (150-450); RED BLOOD COUNT 3.81 10^6/uL (4.30-6.10); WHITE BLOOD COUNT 11.1 10^3/uL (4.0-10.0)
[2018-11-13 06:00] VITALS: BP 135/61
[2018-11-13 06:16] LABS: BLOOD UREA NITROGEN 27 MG/DL (7-18); CALCIUM LEVEL 8.9 MG/DL (8.8-10.2); CARBON DIOXIDE LEVEL 23 MEQ/L (21-32); CHLORIDE LEVEL 102 MEQ/L (98-107); CREATININE FOR GFR 1.05 MG/DL (0.70-1.30); GLOMERULAR FILTRATION RATE > 60.0 (>42); GLUCOSE, FASTING 352 MG/DL (70-100); POTASSIUM SERUM 4.6 MEQ/L (3.5-5.1); SODIUM LEVEL 135 MEQ/L (136-145)
[2018-11-13] MEDS: BUDESONIDE 0.5 MG/2 ML INHALATION SUSPENSION INH SCH (07:31)
[2018-11-13] MEDS: HumaLOG INSULIN (NovoLOG) PER UNIT SC SCH (08:07)
[2018-11-13] MEDS: OMEPRAZOLE 20 MG CAP PO SCH (08:07)
[2018-11-13] MEDS: POTASSIUM CHLORIDE 10 MEQ SR TABLET PO SCH (08:07)
[2018-11-13] MEDS: BUMETANIDE 1 MG TAB PO SCH (08:08)
[2018-11-13] MEDS: MONTELUKAST 10 MG TAB PO SCH (08:08)
[2018-11-13] MEDS: DIGOXIN 0.125 MG TAB PO SCH (08:09)
[2018-11-13 08:11] VITALS: BP 158/78
[2018-11-13] MEDS: glipiZIDE *XL* 2.5MG TABLET PO SCH (08:11)
[2018-11-13] MEDS: ATORVASTATIN 20 MG TAB PO SCH (08:11)
[2018-11-13] MEDS: CETIRIZINE (ZyrTEC) 10 MG TAB PO SCH (08:11)
[2018-11-13] MEDS: metFORMIN (GLUCOPHAGE) 500 MG TAB PO SCH (08:11)
[2018-11-13] MEDS: FLUTICASONE PROP 0.05% NASAL SPRAY 16 GM (FLONASE) SCH (08:12)
[2018-11-13 10:00] VITALS: BP 154/70
[2018-11-13] MEDS: methylPREDNISolone INJ 40 MG/1 ML VIAL (J2920) IV SCH (10:19)
[2018-11-13] MEDS: DOXYCYCLINE HYCLATE 100 MG in D5W MINI-BAG PLUS 100 ML IV SCH (10:19)
[2018-11-13] MEDS: guaiFENesin SYRUP 200 MG/10 ML UDC PO PRN (10:29)
[2018-11-13] MEDS ORDERED: LEVA1TAB2 PO ×2 (12:42→12:47)
[2018-11-13] MEDS ORDERED: ROBI1LIQ9 PO (12:43)
[2018-11-13] MEDS ORDERED: PRED20TA PO (12:50)
--- NOTE | 2018-11-13 13:23 | DS.PDOC ---
Discharge Summary General Date of Admission Nov 08, 2018 at 22:56 Date of Discharge 11/13/18 Attending Physician: WEDNESDAY,ANGELA JENNINGS Discharge Summary PROCEDURES PERFORMED DURING STAY: [None]. ADMITTING DIAGNOSES: 1. cough DISCHARGE DIAGNOSES: 1. acute hypoxic respiratory failure 2/2 copd ex due to community acquired pneumonia 2. uncontrolled hyperglycemia in setting of diabetes 3. acute kidney injury COMPLICATIONS/CHIEF COMPLAINT: Pneumonia. HISTORY OF PRESENT ILLNESS: Patient is 77 year old male with [place], copd on oxygen therapy 2 L at home, atrial fib ( not on AC, reason unclear) diabetes who presents w/ cough and worsening dyspnea on exertion over previous weeks HOSPITAL COURSE: Patient was admitted, started on oxygen therapy, TTE done showed normal EF, normal pulmonary pressures, diastolic dysfunction. VQ scan showed low probability of PE. CT chest showed atelectasis vs early PNA. pt was started on steroid therapy. as well as doxycycline and ceftriaxone. Pt continued to show improvement, steroids were tapered. Pt started on insulin due to uncontrolled sugars. Pt stable for discharge DISCHARGE MEDICATIONS: Please see below. ALLERGIES: Please see below. PHYSICAL EXAMINATION ON DISCHARGE: VITAL SIGNS: Please see below. GENERAL: well nourished, NAD HEENT: normocephalic, atraumatic, EOMI NECK: supple, no JVP CARDIOVASCULAR EXAMINATION: irregular, no MGR RESPIRATORY EXAMINATION: clear to auscultation, no wheezing ABDOMINAL EXAMINATION: soft, non tender, non distended, + BS EXTREMITIES: trace edema, no calf tenderness SKIN: intact, no lesions or breakdowns NEUROLOGICAL EXAMINATION: alert and oriented X 3, no focal deficits PSYCHIATRIC EXAMINATION: normal mood, normal affect LABORATORY DATA: Please see below. IMAGING: see HPI PROGNOSIS: good ACTIVITY: [As tolerated]. DIET: fluid restriction 2 L per day , diabetic diet DISCHARGE PLAN: continue home medications take levaquin and prednisone as prescribed, follow up with primary care doctor and epic beacon analyst within 1 week DISPOSITION: .stable DISCHARGE INSTRUCTIONS: 1. [continue home medications take levaquin and prednisone as prescribed, follow up with primary care doctor and epic beacon analyst within 1 week ITEMS TO FOLLOWUP ON ON OUTPATIENT: 1. follow up with primary care doctor in 1 week follow up with epic beacon analyst DISCHARGE CONDITION: [Stable]. TIME SPENT ON DISCHARGE: Greater than 50minutes. Vital Signs/I&Os Vital Signs Date Time Temp Pulse Resp B/P (MAP) Pulse Ox O2 Delivery O2 Flow Rate FiO2 11/13/18 10:00 97.5 103 22 154/70 (98) 94 Nasal Cannula 2.0 I&O- Last 24 Hours up to 6 AM 11/13/18 06:00 Intake Total 2460 ml Output Total 5050 ml Balance -2590 ml Laboratory Data Labs 24H Laboratory Tests 2 11/12/18 16:43: Bedside Glucose (Misc Panel) 315H 11/12/18 20:47: Bedside Glucose (Misc Panel) 367H 11/13/18 05:34: Nucleated Red Blood Cells % (auto) 0.0, Anion Gap 10, Glomerular Filtration Rate > 60.0, Blood Urea Nitrogen 27H, Creatinine 1.05, Sodium Level 135L, Potassium Level 4.6, Chloride Level 102, Carbon Dioxide Level 23, Calcium Level 8.9 11/13/18 12:01: Bedside Glucose (Misc Panel) 307H CBC/BMP Laboratory Tests 11/13/18 05:34 Red Blood Count 3.81 L, Mean Corpuscular Volume 87.1, Mean Corpuscular Hemoglobin 30.2, Mean Corpuscular Hemoglobin Concent 34.6, Red Cell Distribution Width 14.0, Calcium Level 8.9 FSBS Laboratory Tests Test 11/12/18 16:43 11/12/18 20:47 11/13/18 12:01 Range/Units Bedside Glucose (Misc Panel) 315 367 307 83-110 MG/DL Microbiology Microbiology 11/09/18 Blood Culture - Preliminary, Resulted No Growth after 72 hours. All specime... 11/08/18 Blood Culture - Preliminary, Resulted No Growth after 72 hours. All specime... 11/10/18 Respiratory Virus Panel (PCR) (FERMÍN) - Final, Complete Human Rhinovirus/Enterovirus 11/09/18 Gram Stain - Final, Complete 11/09/18 Sputum Culture - Final, Complete Discharge Medications Scheduled (Digoxin) 125 Mcg Tab, 125 MCG PO DAILY, (Reported) (Anoro Ellipta 62.5-25 Mcg/INH) 1 Aer Aer, 1 AER INH DAILY, (Reported) (Azelastine Hydrochloride) 0.1 % Spr, 2 SPRAYS NA DAILY, (Reported) (Robitussin Cough & Chest 20-400 mg/20Ml) 1 Liq Liq, 10 ML PO Q8H Atorvastatin Calcium (Atorvastatin Calcium) 20 Mg Tab, 20 MG PO DAILY, (Reported) Budesonide (Budesonide) 0.5 Mg/2 Ml Neb, 0.5 MG INH BID, (Reported) Bumetanide (Bumetanide) 0.5 Mg Tab, 1 MG PO DAILY, (Reported) Bumetanide (Bumetanide) 0.5 Mg Tab, 0.5 MG PO QHS, (Reported) Cetirizine HCl (Zyrtec Allergy) 10 Mg Tab, 10 MG PO DAILY, (Reported) Diltiazem HCl (Cartia Xt) 120 Mg Cap, 120 MG PO BID, (Reported) Fluticasone Propionate (Fluticasone Propionate) 50 Mcg/Act Spr, 1 SPRAY NA BID, (Reported) Glipizide (Glipizide ER) 2.5 Mg Tab, 2.5 MG PO BID, (Reported) Levofloxacin Hemihydrate (Levaquin) 500 Mg Tab, 500 MG PO DAILY for pneumonia Metformin Hydrochloride (Metformin HCl) 500 Mg Tab, 500 MG PO BID, (Reported) Montelukast Sodium (Singulair) 10 Mg Tab, 10 MG PO DAILY, (Reported) Omeprazole (Omeprazole) 20 Mg Cap, 20 MG PO DAILY, (Reported) Prednisone (Prednisone) 20 Mg Tab, 20 MG PO ASDIRECTED 2 tabs daily for 4 days 1.5 tabs daily for 4 days 1 tab daily for 4 days 0.5 tabs daily for 4 days Scheduled PRN Albuterol Sulfate (Ventolin Hfa) 108 Mcg/Act Aer, 2 PUFFS INH Q4H PRN for SHORTNESS OF BREATH, (Reported) Albuterol Sulfate (Albuterol Sulfate) 2.5 Mg/3 Ml Nebu, 2.5 MG INH Q4H PRN for SHORTNESS OF BREATH, (Reported) Allergies Coded Allergies: No Known Allergies (Unverified , 11/08/18) WEDNESDAYANGELA MD Nov 13, 2018 13:23
[2018-11-13] MEDS ORDERED: DOXYCYCLINE HYCLATE 100 MG TAB PO SCH (21:00)
[2018-11-14] MEDS ORDERED: predniSONE 20 MG TAB PO SCH (09:00)
== END 2018-11-13 13:54 | disposition home or self-care (01) | DRG 190 ==
LOC: M ED 20:23 → M ED INP 22:56 → M PCU 11-09 00:18 → M MSPAV 11-10 16:38
PROVIDERS: ADMIT Internal Medicine; ATTEND Internal Medicine
DX: J44.1 Chronic obstructive pulmonary disease with (acute) exacerbation (principal); J18.9 Pneumonia, unspecified organism; I50.32 Chronic diastolic (congestive) heart failure; N17.9 Acute kidney failure, unspecified; G47.33 Obstructive sleep apnea (adult) (pediatric); I48.91 Unspecified atrial fibrillation; E11.65 Type 2 diabetes mellitus with hyperglycemia; Z79.899 Other long term (current) drug therapy; Z79.52 Long term (current) use of systemic steroids; D72.829 Elevated white blood cell count, unspecified; K21.9 Gastro-esophageal reflux disease without esophagitis; E78.5 Hyperlipidemia, unspecified; Z87.891 Personal history of nicotine dependence; I11.0 Hypertensive heart disease with heart failure; I27.81 Cor pulmonale (chronic)